=== PATIENT | female | born 1980 | race Caucasian/White ===

== ENCOUNTER 2020-04-13 17:39 | Emergency (ER) | payer MEDICAID ==
[~2020-04-13] VITALS: Ht 170.2 cm; Wt 81.6 kg
[2020-04-13 17:48] VITALS: BP 142/83
--- NOTE | 2020-04-13 17:58 | NUR ---
CONTACT INFO: [phone]
[2020-04-13] MEDS ORDERED: ACETAMINOPHEN 650 MG/20.3 ML UDC PO ONE (18:00)
[2020-04-13] MEDS ORDERED: IBUPROFEN 600 MG TABLET PO ONE (18:30)
[2020-04-13] MEDS ORDERED: IBUPROFEN 600 MG TABLET ONE (19:03)
== END 2020-04-13 19:19 | disposition home or self-care (01) ==
LOC: ER 17:41
DX: J18.9 Pneumonia, unspecified organism (principal); Z20.828 Contact with and (suspected) exposure to other viral communicable diseases; R03.0 Elevated blood-pressure reading, without diagnosis of hypertension
CPT/HCPCS: 71045; 87804; 99284; C9803; U0003

== ENCOUNTER 2020-04-15 20:50 | Emergency (ER) | payer MEDICAID ==
[~2020-04-15] VITALS: Ht 170.2 cm; Wt 81.6 kg
[2020-04-15] MEDS ORDERED: ACETAMINOPHEN ES 500 MG TABLET ONE (21:20)
[2020-04-15] MEDS ORDERED: KETOROLAC TROMETHAMINE INJ 30 MG/ML VIAL ONE (21:20)
--- NOTE | 2020-04-15 21:24 | NUR ---
PT SIGNED WAIVER.
--- NOTE | 2020-04-15 21:25 | NUR ---
XRAY AT BEDSIDE
[2020-04-15] MEDS ORDERED: IV NS 0.9% 1,000 ML BAG IV ONE (21:30)
[2020-04-15] MEDS ORDERED: KETOROLAC TROMETHAMINE INJ 30 MG/ML VIAL IV ONE (21:30)
[2020-04-15] MEDS ORDERED: ACETAMINOPHEN ES 500 MG TABLET PO ONE (21:30)
[2020-04-15 21:38] LABS: BASOPHILS % (AUTO) 0.4 % (0.0-2.0); HEMATOCRIT 35 % (33-45); LYMPHOCYTES # (AUTO) 0.5 /CMM (0.8-4.8); LYMPHOCYTES % (AUTO) 27.4 % (20.0-44.0); MEAN CORPUSCULAR HGB CONC 34 g/dl (31.0-36.0); MEAN CORPUSCULAR VOLUME 90 fL (82-100); MONOCYTES # (AUTO) 0.2 /CMM (0.1-1.30); MONOCYTES % (AUTO) 9.5 % (2.0-12.0); NEUTROPHILS # (AUTO) 1.2 /CMM (1.8-8.9); NEUTROPHILS % (AUTO) 62.7 % (43.0-81.0); PLATELET COUNT (AUTO) 145 /CMM (150-450); RED BLOOD CELL COUNT(AUTO) 3.94 MIL/uL (4.0-5.2)
--- NOTE | 2020-04-15 21:38 | NUR ---
GUILLERMINAID SWABBED, SENT TO LAB.
[2020-04-15 21:46] LABS: WHITE BLOOD COUNT (AUTO) 1.8 K/uL (4.3-11.0)
--- NOTE | 2020-04-15 21:47 | NUR ---
MD AT BEDSIDE SPEAKING TO PT REGARDING CHEST XRAY.
[2020-04-15 21:53] LABS: CALCIUM, SERUM 8.6 mg/dL (8.5-10.1); CREATININE 0.7 mg/dL (0.6-1.3); POTASSIUM 3.4 mmol/L (3.5-5.1)
[2020-04-15 21:58] LABS: BILIRUBIN,TOTAL 0.2 mg/dL (0.2-1.0); TOTAL PROTEIN, SERUM 8.2 g/dL (6.4-8.2)
[2020-04-15] MEDS ORDERED: CEFTRIAXONE 1GM BAG (ER ONLY) 50 ML IV ONE (21:58)
[2020-04-15] MEDS ORDERED: CEFTRIAXONE 1 G in IV D5W 50 ML IV ONE (22:00)
--- NOTE | 2020-04-15 22:09 | NUR ---
PT educated on taking ibuprofen and tylenol. Also, to stay hydrated.
--- NOTE | 2020-04-15 22:09 | NUR ---
Patient discharged to home in stable condition. Written and verbal after care instructions given. Patient verbalizes understanding of instruction and RX.
--- NOTE | 2020-04-15 22:09 | NUR ---
IV removed. Catheter intact and site benign. Pressure and 4x4 applied to site. No bleeding noted.
[2020-04-15 22:22] VITALS: BP 127/76
[2020-04-15 22:32] LABS: BAND % (MANUAL) 4 % (0.0-5.0); LYMPHOCYTES % (MANUAL) 23 % (16-48); MONOCYTES % (MANUAL) 16 % (0-11.0); NEUTROPHILS % (MANUAL) 57 (42-76)
== END 2020-04-15 22:31 | disposition home or self-care (01) ==
LOC: ER 20:51
DX: J18.9 Pneumonia, unspecified organism (principal); D72.819 Decreased white blood cell count, unspecified; R50.9 Fever, unspecified; Z20.828 Contact with and (suspected) exposure to other viral communicable diseases
CPT/HCPCS: 36415; 71045; 80053; 85007; 85025; 96365; 96375; 99284; C9803; J0696 ×2; J1885; J7030; J7060; U0003

== ENCOUNTER 2020-04-19 14:52 | Emergency (ER) | payer MEDICAID ==
[~2020-04-19] VITALS: Ht 170.2 cm; Wt 81.6 kg
--- NOTE | 2020-04-19 15:01 | NUR ---
cAME IN FOR WORSENING COUGH/SOB, SEEN 6 DAYS AGO FOR SAME COMPLAINT. DIAGNOSED W PNEUMONIA. TO ER BED 11, HOOKED TO MANAGER MERCHANDISING, BP CUFF AND POX. NOTED TACHYCATDIC. CHANGED TO HOSP GOWN, WARM BLANKET PROVIDED, PATIENT AAO x 4, NAD NOTED. AWAITING MD HIRSCH.
--- NOTE | 2020-04-19 15:06 | NUR ---
DR KIMBALL AT BEDSIDE
[2020-04-19] MEDS ORDERED: VANCOMYCIN 1 GM in IV D5W 250 ML IV ONE (15:30)
[2020-04-19] MEDS ORDERED: CEFEPIME 1 GM in IV D5W 50 ML IV ONE (15:30)
[2020-04-19 15:53] LABS: BASOPHILS % (AUTO) 0.2 % (0.0-2.0); HEMATOCRIT 35 % (33-45); HEMOGLOBIN 11.7 g/dL (11.5-14.8); LYMPHOCYTES # (AUTO) 0.4 /CMM (0.8-4.8); LYMPHOCYTES % (AUTO) 11.4 % (20.0-44.0); MEAN CORPUSCULAR HGB CONC 34 g/dl (31.0-36.0); MEAN CORPUSCULAR VOLUME 89 fL (82-100); MONOCYTES # (AUTO) 0.2 /CMM (0.1-1.30); MONOCYTES % (AUTO) 5.4 % (2.0-12.0); NEUTROPHILS # (AUTO) 3.1 /CMM (1.8-8.9); PLATELET COUNT (AUTO) 182 /CMM (150-450); RED BLOOD CELL COUNT(AUTO) 3.93 MIL/uL (4.0-5.2); WHITE BLOOD COUNT (AUTO) 3.7 K/uL (4.3-11.0)
[2020-04-19 16:22] LABS: ALANINE AMINOTRANSFERASE 44 U/L (12-78); ALBUMIN 3.4 g/dL (3.4-5.0); ALKALINE PHOSPHATASE 50 U/L (46-116); ASPARTATE AMINOTRANSFERASE 45 U/L (15-37); B-TYPE NATRIURETIC PEPTIDE 58 PG/ML (0-125); BILIRUBIN,TOTAL 0.3 mg/dL (0.2-1.0); CALCIUM, SERUM 8.5 mg/dL (8.5-10.1); CARBON DIOXIDE 24 mmol/L (21-32); CHLORIDE 102 mmol/L (98-107); CREATININE 0.8 mg/dL (0.6-1.3); GLUCOSE 99 mg/dL (74-106); POTASSIUM 3.4 mmol/L (3.5-5.1); SODIUM SERUM 139 mmol/L (136-145); UREA NITROGEN, BLOOD 6 mg/dL (7-18)
[2020-04-19 16:23] LABS: CREATINE KINASE, TOTAL 383 U/L (26-192); FERRITIN 305 ng/mL (8-388)
[2020-04-19] MEDS ORDERED: ALBU8.5H8 INH (16:51)
[2020-04-19] MEDS ORDERED: DEXAMETHASONE SOD PHOSPHATE 10 MG/ML VIAL IV SCH (17:00)
[2020-04-19] MEDS ORDERED: ENOXAPARIN SODIUM 40 MG/0.4 ML DISP.SYRIN SQ SCH (17:00)
--- NOTE | 2020-04-19 19:16 | NUR ---
SPOKE TO LEILA OF [facility] TRANSFER [facility] [phone]. AWAITING CALLBACK FOR UPDATE IF PATIENT HAS AVAILABLE BED IN APPROX 30-50MIN.
--- NOTE | 2020-04-19 19:23 | NUR ---
swab sample collected and sent to the lab
--- NOTE | 2020-04-19 19:41 | NUR ---
REPORT GIVEN TO TRICIA PACHECO FOR PER
--- NOTE | 2020-04-19 19:50 | NUR ---
TOOK OVER PT CARE. PT ON MONITOR AND PULSE OX. AWAITING FOR CALL FROM [facility] REGARDING PT BEING TRANSFERED.
--- NOTE | 2020-04-19 19:56 | NUR ---
CALL FROM LAB, RAPID COVID NEGATIVE.
--- NOTE | 2020-04-19 20:28 | NUR ---
PT AMBULATED TO THE RESTROOM.
--- NOTE | 2020-04-19 21:48 | NUR ---
[facility] ACCEPTING ANA BROOKS 854 ROOM [phone] ETA 40 MINS ROYALTY
[2020-04-19 21:53] VITALS: BP 127/68
--- NOTE | 2020-04-19 22:44 | NUR ---
REPORT GIVEN TO ADAM PACHECO FOR PER AND TRANSFER. PT TRANSFRED TO [facility].
== END 2020-04-19 23:20 | disposition short-term general hospital (02) ==
LOC: ER 14:56
DX: J18.9 Pneumonia, unspecified organism (principal); J91.8 Pleural effusion in other conditions classified elsewhere; Z20.828 Contact with and (suspected) exposure to other viral communicable diseases; E66.01 Morbid (severe) obesity due to excess calories; J96.01 Acute respiratory failure with hypoxia; D68.59 Other primary thrombophilia; R00.0 Tachycardia, unspecified
CPT/HCPCS: 36415; 71045; 80053; 82550; 82553; 82728; 83605; 83615; 83880; 84145; 84484; 85025; 85378; 86140; 87040 ×2; 87081; 87426; 93005; 96365; 96367; 96372; 96375; 99291; C9803 ×2; J0692 ×2; J3370; J7060 ×2; U0003; J1100; J1650